=== PATIENT | female | born 1970 | race Caucasian/White ===

== ENCOUNTER 2018-04-01 14:06 | Emergency (ER) | payer OTHER ==
[2018-04-01] MEDS: predniSONE 10 MG TABLET PO (14:59)
[2018-04-01] MEDS: IPRATRPIUM/ALBUTEROL 0.5/2.5MG 3 ML NEBU. NEB (15:00)
== END 2018-04-01 15:40 | disposition home or self-care (01) ==
LOC: ER 14:06
DX: Z88.8 Allergy status to other drugs, medicaments and biological substances (principal); F17.210 Nicotine dependence, cigarettes, uncomplicated; J45.901 Unspecified asthma with (acute) exacerbation; Z98.51 Tubal ligation status; Z88.6 Allergy status to analgesic agent
CPT/HCPCS: 94640; 99283-25; J7512; J7620

== ENCOUNTER 2022-02-23 17:30 | Inpatient (IN) | payer SELFPAY ==
[~2022-02-23] VITALS: Ht 157.5 cm; Wt 198.0 kg
[~2022-02-23 17:30] MED LIST: AZIT250T6 PO; IV NORMAL SALINE 1000ML BAG 1,000 ML IV SCH; PRED20TA PO; fentaNYL PF VIAL 100 MCG/2 ML VIAL IV ONE
[2022-02-23] MEDS ORDERED: fentaNYL PF VIAL 100 MCG/2 ML VIAL ONE ×2 (17:45→19:33)
[2022-02-23] MEDS ORDERED: fentaNYL PF VIAL 100 MCG/2 ML VIAL IV ONE (19:06)
[2022-02-23] MEDS ORDERED: ACETAMINOPHEN 500 MG TABLET PO ONE (19:12)
[2022-02-23] MEDS ORDERED: PIPERACILLIN/TAZOBACTAM 3.375 GM in IV NORMAL SALINE 50ML 50 ML IV ONE (21:12)
[2022-02-24] VITALS (7 sets, daily range): BP systolic 117–157; BP diastolic 56–80
[2022-02-24] MEDS ORDERED: PROCHLORPERAZINE 10 MG/2 ML VIAL. IV PRN ×2 (01:30→07:45)
[2022-02-24] MEDS ORDERED: oxyCODONE/APAP 5/325 1 TAB TABLET PO PRN (01:30)
[2022-02-24] MEDS ORDERED: CONTRAST GIVEN. MC PRN (02:30)
[2022-02-24] MEDS ORDERED: IOHEXOL 300 MG/ML 100ML VIAL. IV ONE (02:30)
[2022-02-24] MEDS: fentaNYL PF VIAL 100 MCG/2 ML VIAL IVP PRN ×2 (02:52→09:03)
[2022-02-24] MEDS: IV NORMAL SALINE 1000ML BAG 1,000 ML IV SCH ×2 (02:59→11:30)
[2022-02-24] MEDS ORDERED: PIPERACILLIN/TAZOBACTAM 3.375 GM in IV NORMAL SALINE 50ML 50 ML IV SCH (05:00)
--- NOTE | 2022-02-24 07:05 | NUR ---
GI Consult called in for Dr. Ethan Landon. Message left with answering service staff
--- NOTE | 2022-02-24 07:44 | PDOC1 ---
History and Physical Date of Service: DOS: DATE: 02/24/22 TIME: 07:40 Chief Complaint: Chief Complain: Abdominal pain History of Present Illness: HPI: 51-year-old female with past medical history of diabetes mellitus, hypertension, hypothyroidism, gastroparesis who comes into the ED with complaints of left- sided abdominal pain. Her last bowel movement was yesterday and it was smoothly like in nature. No acute bleeding or bright red blood or dark tarry stools. Preliminary read of her CT scan showed sigmoid diverticulitis. Patient has had minor abdominal pains in the past but has never been diagnosed with diverticulosis. She had a colonoscopy in her early 20s and there was a polyp that was removed but it was noncancerous. She has not had any colonoscopies after that. She also has a unobscured history of gastroparesis for which she states that it might have been related to her hernia repair with mesh in the past. She had multiple C-sections that that eventually caused her to have a ventral hernia and she had that repaired. She also has a history of cholecystectomy. She is unsure what diagnosis they gave her but she also has a history of peptic ulcer disease as well 2. Currently denies any nausea vomiting, fevers, shortness of breath, chest pain, hematuria or bloody stools. Past Medical/Surgical History: PMH/PSH: History of diabetes mellitus type 2, hypertension, morbid obesity, questionable gastroparesis Past surgical history of cholecystectomy, C-sections, multiple, ventral hernia repair with mesh Allergies: Allergies: Coded Allergies: morphine (Verified Adverse Reaction, Intermediate, ITCHY, 04/01/18) metoclopramide (Verified Adverse Reaction, Unknown, ANXIOUS, 04/01/18) Family History: Family History: Reviewed with no relative findings in the chart. Social History: Social History: Denies any alcohol, tobacco or drug abuse. Current Medications: Current Medications Current Medications Sodium Chloride 1,000 ml @ 1,000 mls/hr Q1H IV ; Start 02/23/22 at 17:14; Stop 02/24/22 at 01:26; Status DC Fentanyl Citrate (Fentanyl 2ml Vial) 50 mcg ONCE ONCE IV ; Start 02/23/22 at 17:14; Stop 02/24/22 at 01:26; Status DC Fentanyl Citrate (Fentanyl 2ml Vial) 50 mcg ONCE ONCE IV ; Start 02/23/22 at 19:06; Stop 02/24/22 at 01:26; Status DC Acetaminophen (Tylenol) 1,000 mg ONCE ONCE PO ; Start 02/23/22 at 19:12; Stop 02/24/22 at 01:27; Status DC Piperacillin Sod/ Tazobactam Sod 3.375 gm/Sodium Chloride 50 ml @ 100 mls/hr ONCE ONCE IV ; Start 02/23/22 at 21:12; Stop 02/24/22 at 01:27; Status DC Sodium Chloride 1,000 ml @ 100 mls/hr Q10H IV Last administered on 02/24/22at 02:59; Start 02/24/22 at 01:30 Piperacillin Sod/ Tazobactam Sod 3.375 gm/Sodium Chloride 50 ml @ 100 mls/hr Q6HRS IV Last administered on 02/24/22at 05:24; Start 02/24/22 at 05:00 Fentanyl Citrate (Fentanyl 2ml Vial) 50 mcg PRN Q2HR PRN IVP PAIN Last administered on 02/24/22at 02:52; Start 02/24/22 at 01:30 Oxycodone/ Acetaminophen (Percocet 5/325) 1 tab PRN Q6HRS PRN PO PAIN MILD TO MODERATE; Start 02/24/22 at 01:30 Oxycodone/ Acetaminophen (Percocet 5/325) 2 tab PRN Q6HRS PRN PO PAIN SEVERE; Start 02/24/22 at 01:30 Prochlorperazine Edisylate (Compazine) 10 mg PRN Q6HRS PRN IV NAUSEA/VOMITING; Start 02/24/22 at 01:30 Iohexol (Omnipaque 300 Mg/ml) 75 ml 1X ONCE IV Last administered on 02/24/22at 02:20; Start 02/24/22 at 02:30; Stop 02/24/22 at 02:31; Status DC Info (CONTRAST GIVEN -- Rx MONITORING) 1 each PRN DAILY PRN MC SEE COMMENTS; Start 02/24/22 at 02:30; Stop 02/26/22 at 02:29 Active Scripts Active Azithromycin Tablet (Azithromycin) 250 Mg Tablet 1 Pkg PO UD Prednisone 20 Mg Tablet 2 Tab PO BID 4 Days ROS: Review of Systems Review of System REVIEW OF SYSTEMS: GENERAL: Denies weakness SKIN: No bruising, hair changes or rashes. EYES: No blurred, double or loss of vision. NOSE AND THROAT: No history of nosebleeds, hoarseness or sore throat. HEART: No history of palpitations, chest pain or shortness of breath on exertion. LUNGS: Denies cough, hemoptysis, wheezing or shortness of breath. GASTROINTESTINAL: Denies changes in appetite, nausea, vomiting, diarrhea or constipation. GENITOURINARY: No history of frequency, urgency, hesitancy or nocturia. NEUROLOGIC: Denies history of numbness, tingling, or tremor. PSYCHIATRIC: No history of panic, anxiety or depression. ENDOCRINE: No history of heat or cold intolerance, polyuria or polydipsia. EXTREMITIES: Denies joint pain, pain on walking or stiffness. Physical Exam: Vital Signs: Vital Signs Date Time Temp Pulse Resp B/P (MAP) Pulse Ox O2 Delivery O2 Flow Rate FiO2 02/24/22 03:55 98.0 78 18 117/62 (80) 92 Room Air 98.0 Physcial Exam: GEN: No apparent distress. Alert and oriented HEENT: Normal cephalic, atraumatic, external auditory canals are patent EYES: Extraocular muscles are intact, pupil are equally round and reactive to light and accommodation MUSCULOSKELETAL: Well developed , well nourished, good range of motion ENDOCRINE: No thyromegaly was palpated LYMPHATICS: No cervical chain or axillary nodes were noted HEMATOPOIETIC: No bruising NECK: Supple, no JVD, no thyromegaly was noted LUNGS: Clear to auscultation in all lung mathew without rhonchi or wheezing HEART: RRR, S!, S2 present. Peripheral pulses intact, no obvious murmurs noted ABDOMEN: Soft, nontender. Positive bowel sounds, no organomegaly, normal bowel sounds EXTREMITIES: Without clubbing, cyanosis, or edema. Pedal pulses intact. Negative Homans sign NEUROLOGIC: Normal speech and tone. A&O x 3, moves all extremities, no obvious focal deficits PSYCHIATRIC: Normal affect, normal mood. Stable SKIN: No ulcerations or rashes, good skin turgor, no jaundice VASCULAR: Good capillary refill, neurovascular bundle appears to be intact Labs: Labs: Pending labs Images: Images Pending final CT read Assessment/Plan Assessment/Plan Acute abdominal pain due to diverticulitis Morbid obesity History of diabetes mellitus History of hypertension Admit to hospitalist service for further management Continue IV fluids Continue IV antibiotics Appreciate GI recommendationsswitch to p.o. antibiotics and advance diet as tolerated. SCD and ambulation for DVT prophylaxis Protonix GI prophylaxis ADA diet CODE STATUS full Discussed with RN and SW Disposition inpatient management as above DPOA: Undesignated Justifications for Admission Other Justification CHAI JACOBO MD Feb 24, 2022 07:44
[2022-02-24] MEDS ORDERED: diphenhydrAMINE HCL 25 MG CAPSULE PO PRN ×2 (07:45)
[2022-02-24] MEDS ORDERED: diphenhydrAMINE 50 MG/ML VIAL IVP PRN (07:45)
[2022-02-24] MEDS ORDERED: DOCUSATE SODIUM 100 MG CAPSULE. PO PRN (07:45)
[2022-02-24] MEDS ORDERED: ACETAMINOPHEN 325 MG TABLET. PO PRN (07:45)
[2022-02-24] MEDS ORDERED: DEXTROSE 50% 25 GM / 50ML DISP.SYRIN. IV PRN (07:45)
[2022-02-24] MEDS ORDERED: ONDANSETRON PF 4 MG/2 ML VIAL. IVP PRN (07:45)
[2022-02-24] MEDS ORDERED: ZOLPIDEM 5 MG TABLET. PO PRN (07:45)
[2022-02-24] MEDS ORDERED: LORazepam 0.5 MG TABLET PO PRN (07:45)
[2022-02-24] MEDS ORDERED: SENNOSIDES 8.6 MG TABLET PO PRN (07:45)
--- NOTE | 2022-02-24 08:45 | PDOC2 ---
CONSULT Date of Consult Date of Consult DATE: 02/24/22 TIME: 08:37 Reason for Consult Reason for Consult: Abdominal pain, diverticulitis, hemorrhoid History of Present Illness Reason for Visit: This is a 51-year-old female who presents with new onset left-sided abdominal pain. Initial CT revealed segmental diverticulitis. She recalls having minor abdominal pain symptoms in the past but never to this severity and was never diagnosed with diverticulitis before. She had a colonoscopy in her 20s and had a polyp removed but has not had a follow-up colonoscopy in the last 25 years or so. She has a history of external hemorrhoids that occasionally bother her and sometimes bleed. The last few days she has had some diarrhea which is unusual for her since she usually has mild chronic constipation. There is a chronic history of external hemorrhoids with some discomfort and occasional bleeding. She has had some irritation from that presently. She was examined in the emergency room where external hemorrhoids were noted and was f elt like there might be some prolapse even of tissue or mass. Fortunately CT scan did not confirm any mass lesion. she does have a history of diabetes and actually has been told she has diabetic gastroparesis but this has not bothered her recently. She is tolerating diet without nausea or vomiting. We do not have any of those records available today. Overnight she was given IV antibiotics and some pain medication but this morning is feeling much better and wonders about when she can go home. Past Medical History GI: Diverticulosis, Hemorrhoids, Other (Told she has a history of diabetic gastroparesis?) Endocrine: Diabetes Current Problem List Problem List Problems Medical Problems: (1) Diverticulitis Status: Acute Current Medications Current Medications Current Medications Sodium Chloride 1,000 ml @ 1,000 mls/hr Q1H IV ; Start 02/23/22 at 17:14; Stop 02/24/22 at 01:26; Status DC Fentanyl Citrate (Fentanyl 2ml Vial) 50 mcg ONCE ONCE IV ; Start 02/23/22 at 17:14; Stop 02/24/22 at 01:26; Status DC Fentanyl Citrate (Fentanyl 2ml Vial) 50 mcg ONCE ONCE IV ; Start 02/23/22 at 19:06; Stop 02/24/22 at 01:26; Status DC Acetaminophen (Tylenol) 1,000 mg ONCE ONCE PO ; Start 02/23/22 at 19:12; Stop 02/24/22 at 01:27; Status DC Piperacillin Sod/ Tazobactam Sod 3.375 gm/Sodium Chloride 50 ml @ 100 mls/hr ONCE ONCE IV ; Start 02/23/22 at 21:12; Stop 02/24/22 at 01:27; Status DC Sodium Chloride 1,000 ml @ 100 mls/hr Q10H IV Last administered on 02/24/22at 02:59; Start 02/24/22 at 01:30 Piperacillin Sod/ Tazobactam Sod 3.375 gm/Sodium Chloride 50 ml @ 100 mls/hr Q6HRS IV Last administered on 02/24/22at 05:24; Start 02/24/22 at 05:00 Fentanyl Citrate (Fentanyl 2ml Vial) 50 mcg PRN Q2HR PRN IVP PAIN Last administered on 02/24/22at 02:52; Start 02/24/22 at 01:30 Oxycodone/ Acetaminophen (Percocet 5/325) 1 tab PRN Q6HRS PRN PO PAIN MILD TO MODERATE; Start 02/24/22 at 01:30 Oxycodone/ Acetaminophen (Percocet 5/325) 2 tab PRN Q6HRS PRN PO PAIN SEVERE; Start 02/24/22 at 01:30 Prochlorperazine Edisylate (Compazine) 10 mg PRN Q6HRS PRN IV NAUSEA/VOMITING; Start 02/24/22 at 01:30 Iohexol (Omnipaque 300 Mg/ml) 75 ml 1X ONCE IV Last administered on 02/24/22at 02:20; Start 02/24/22 at 02:30; Stop 02/24/22 at 02:31; Status DC Info (CONTRAST GIVEN -- Rx MONITORING) 1 each PRN DAILY PRN MC SEE COMMENTS; Start 02/24/22 at 02:30; Stop 02/26/22 at 02:29 Sennosides (Senna) 17.2 mg PRN BID PRN PO CONSTIPATION; Start 02/24/22 at 07:45 Docusate Sodium (Colace) 100 mg PRN DAILY PRN PO HARD STOOLS; Start 02/24/22 at 07:45 Ondansetron HCl (Zofran) 4 mg PRN Q6HRS PRN IVP NAUSEA/VOMITING, 1st CHOICE; Start 02/24/22 at 07:45 Dextrose (Dextrose 50%-Water Syringe) 12.5 gm PRN Q15MIN PRN IV SEE COMMENTS; Start 02/24/22 at 07:45 Acetaminophen (Tylenol) 650 mg PRN Q4HRS PRN PO TEMP OVER 100.4F OR MILD PAIN; Start 02/24/22 at 07:45 Lorazepam (Ativan) 0.5 mg PRN Q6HRS PRN PO ANXIETY / AGITATION; Start 02/24/22 at 07:45 Lorazepam (Ativan Inj) 0.25 mg PRN Q4HRS PRN IV ANXIETY / AGITATION; Start 02/24/22 at 07:45 Prochlorperazine Edisylate (Compazine) 10 mg PRN Q6HRS PRN IV NAUSEA/VOMITING, 2nd CHOICE; Start 02/24/22 at 07:45 Diphenhydramine HCl (Benadryl) 25 mg PRN Q6HRS PRN IVP ITCHING; Start 02/24/22 at 07:45 Diphenhydramine HCl (Benadryl) 25 mg PRN Q6HRS PRN PO ITCHING; Start 02/24/22 at 07:45 Diphenhydramine HCl (Benadryl) 25 mg PRN QHS PRN PO INSOMNIA, 1st CHOICE; Start 02/24/22 at 07:45 Zolpidem Tartrate (Ambien) 2.5 mg PRN QHS PRN PO INSOMNIA, 2nd CHOICE; Start 02/24/22 at 07:45 Active Scripts Active Azithromycin Tablet (Azithromycin) 250 Mg Tablet 1 Pkg PO UD Prednisone 20 Mg Tablet 2 Tab PO BID 4 Days Allergies Allergies: Coded Allergies: morphine (Verified Adverse Reaction, Intermediate, ITCHY, 04/01/18) metoclopramide (Verified Adverse Reaction, Unknown, ANXIOUS, 04/01/18) Physical Exam General: Alert, Oriented X3, Cooperative HEENT: Atraumatic, PERRLA Lungs: Clear to auscultation Heart: Regular rate, Normal S1 Abdomen: Normal bowel sounds, Soft, No tenderness, No hepatosplenomegaly, Other (Obese, but no point tenderness in the left lower quadrant) Extremities: No clubbing Neuro: Normal speech Psych/Mental Status: Mental status NL Vitals VITALS Vital Signs Date Time Temp Pulse Resp B/P (MAP) Pulse Ox O2 Delivery O2 Flow Rate FiO2 02/24/22 03:55 98.0 78 18 117/62 (80) 92 Room Air 98.0 Labs Labs WBC is 9.5, hemoglobin 13.[address] scan of the abdomen and pelvis Prior cholecystectomy Inflammatory changes in the sigmoid colon associated with diverticulitis. No mass or abnormality in the rectum was noted. Assessment/Plan Assessment/Plan Acute diverticulitis. This is her first episode. She has had prior symptoms of abdominal discomfort but not to this severity. She has not had a colonoscopy in many years. Fortunately clinically she is dramatically improved and has a normal white count. She is anxious to go home. Hemorrhoids versus rectal mass. It is reassuring that the CT scan was unr evealing but evaluation of this area electively would be appropriate. If the hemorrhoids are the problem then better control of her bowel pattern with fiber and MiraLAX would be appropriate. Further evaluation at the time of colonoscopy to determine if any other lesions are present would be appropriate but will need to wait until her diverticulitis is improved Plan: Switch to oral antibiotics and if tolerated early discharge is reasonable. Add fiber to her diet and MiraLAX as needed to control her bowel pattern in the future although presently she is not having constipation Colonoscopy is recommended in the next 4-6 weeks to evaluate as a screening study but also to rule out any mass lesions in the rectum. OSMAR FREGOSO MD Feb 24, 2022 08:45
[2022-02-24] MEDS: metroNIDAZOLE 500 MG TABLET PO SCH ×2 (09:01→20:30)
[2022-02-24] MEDS: AMOXICILLIN/K CLAV 500/125MG TABLET. PO SCH ×2 (09:01→20:30)
[2022-02-24] MEDS: oxyCODONE/APAP 5/325 1 TAB TABLET PO PRN ×3 (09:02→18:33)
[2022-02-24 10:24] LABS: BACTERIA,URINE 0 /HPF (0-FEW); WBC,URINE 0 /HPF (0-4)
[2022-02-24 10:26] LABS: DIRECT BILIRUBIN 0.1 mg/dL (0.0-0.2)
[2022-02-24 10:27] LABS: BASO # 0.1 x10^3/uL (0.0-0.2); BASO % 1 % (0-3); EOS # 0.1 x10^3/uL (0.0-0.7); EOS % 1 % (0-3); HEMATOCRIT 40.9 % (36.0-47.0); HEMOGLOBIN 13.9 g/dL (12.0-15.5); LYMPH # 1.8 x10^3/uL (1.0-4.8); LYMPH % 19 % (24-48); MEAN CORPUSCULAR HEMOGLOBIN 30 pg (25-35); MEAN CORPUSCULAR HGB CONC 34 g/dL (31-37); MEAN CORPUSCULAR VOLUME 86 fL (79-100); MONO # 0.5 x10^3/uL (0.0-1.1); MONO % 5 % (0-9); NEUT # 7.1 x10^3/uL (1.8-7.7); NEUT % 75 % (31-73); PLATELET COUNT 323 x10^3/uL (140-400); RED BLOOD COUNT 4.73 x10^6/uL (3.50-5.40); RED CELL DISTRIBUTION WIDTH 14.4 % (11.5-14.5); WHITE BLOOD COUNT 9.5 x10^3/uL (4.0-11.0)
[2022-02-24 11:10] LABS: ALBUMIN 3.2 g/dL (3.4-5.0); ALBUMIN/GLOBULIN RATIO 0.8 (1.0-1.7); CALCIUM 9.5 mg/dL (8.5-10.1); CREATININE 1.1 mg/dL (0.6-1.0); GFR 52.6; POTASSIUM 4.4 mmol/L (3.5-5.1); TOTAL BILIRUBIN 0.4 mg/dL (0.2-1.0); TOTAL PROTEIN 7.3 g/dL (6.4-8.2)
--- NOTE | 2022-02-24 18:33 | NUR ---
patient having increased pain after GI soft dinner. [place] the need to stay over night. Dr. Mckeon notified. Will try full liquid diet beginning in AM and advance as tolerated.
[2022-02-25] MEDS: IV NORMAL SALINE 1000ML BAG 1,000 ML IV SCH ×4 (00:07→19:28)
[2022-02-25] MEDS: oxyCODONE/APAP 5/325 1 TAB TABLET PO PRN ×4 (00:07→23:14)
[2022-02-25 03:38] VITALS: BP 140/76
[2022-02-25 06:56] VITALS: BP 127/85
[2022-02-25 07:56] LABS: BASO % 1 % (0-3); EOS # 0.1 x10^3/uL (0.0-0.7); EOS % 1 % (0-3); HEMATOCRIT 43.8 % (36.0-47.0); HEMOGLOBIN 14.7 g/dL (12.0-15.5); LYMPH # 1.1 x10^3/uL (1.0-4.8); LYMPH % 14 % (24-48); MEAN CORPUSCULAR HEMOGLOBIN 29 pg (25-35); MEAN CORPUSCULAR HGB CONC 34 g/dL (31-37); MEAN CORPUSCULAR VOLUME 88 fL (79-100); MONO # 0.5 x10^3/uL (0.0-1.1); MONO % 7 % (0-9); NEUT # 5.6 x10^3/uL (1.8-7.7); NEUT % 77 % (31-73); PLATELET COUNT 331 x10^3/uL (140-400); RED BLOOD COUNT 4.98 x10^6/uL (3.50-5.40); RED CELL DISTRIBUTION WIDTH 14.5 % (11.5-14.5); WHITE BLOOD COUNT 7.3 x10^3/uL (4.0-11.0)
[2022-02-25] MEDS: AMOXICILLIN/K CLAV 500/125MG TABLET. PO SCH ×2 (07:56→20:25)
[2022-02-25] MEDS: metroNIDAZOLE 500 MG TABLET PO SCH ×2 (07:56→20:25)
[2022-02-25 08:19] LABS: CALCIUM 9.1 mg/dL (8.5-10.1); CREATININE 1.1 mg/dL (0.6-1.0); GFR 52.6; MAGNESIUM 2.2 mg/dL (1.8-2.4); PHOSPHORUS 3.4 mg/dL (2.6-4.7); POTASSIUM 4.4 mmol/L (3.5-5.1)
[2022-02-25 11:00] VITALS: BP 119/84
--- NOTE | 2022-02-25 12:56 | PDOC ---
GI PROGRESS NOTES Date of Service: Date/Time DATE: 02/25/22 TIME: 12:52 Subjective Subjective Improved. Some soreness in the left lower quadrant but overall better. Last bowel movement 2 days ago. Normally regular. Objective Vitals Vital Signs Date Time Temp Pulse Resp B/P (MAP) Pulse Ox O2 Delivery O2 Flow Rate FiO2 02/25/22 11:00 98.1 74 16 119/84 (96) 97 Room Air 98.1 02/25/22 08:26 Room Air 02/25/22 08:00 Room Air 02/25/22 07:56 Room Air 02/25/22 06:56 97.9 74 20 127/85 (99) 93 Room Air 97.9 02/25/22 03:38 97.5 77 19 140/76 (97) 97 Room Air 97.5 02/25/22 00:37 20 Room Air 02/25/22 00:07 20 Room Air 02/24/22 22:48 97.6 78 19 120/63 (82) 100 Room Air 97.6 02/24/22 20:00 Room Air 02/24/22 19:03 20 Room Air 02/24/22 19:00 98.3 80 19 154/56 (88) 94 Room Air 98.3 02/24/22 18:33 16 97 Room Air 02/24/22 15:05 16 97 Room Air 02/24/22 15:00 98.4 82 16 131/68 (89) 97 Room Air 98.4 02/24/22 14:21 16 97 Room Air Labs Labs Laboratory Tests Test 02/25/22 07:00 White Blood Count 7.3 x10^3/uL (4.0-11.0) Red Blood Count 4.98 x10^6/uL (3.50-5.40) Hemoglobin 14.7 g/dL (12.0-15.5) Hematocrit 43.8 % (36.0-47.0) Mean Corpuscular Volume 88 fL (79-100) Mean Corpuscular Hemoglobin 29 pg (25-35) Mean Corpuscular Hemoglobin Concent 34 g/dL (31-37) Red Cell Distribution Width 14.5 % (11.5-14.5) Platelet Count 331 x10^3/uL (140-400) Neutrophils (%) (Auto) 77 % (31-73) Lymphocytes (%) (Auto) 14 % (24-48) Monocytes (%) (Auto) 7 % (0-9) Eosinophils (%) (Auto) 1 % (0-3) Basophils (%) (Auto) 1 % (0-3) Neutrophils # (Auto) 5.6 x10^3/uL (1.8-7.7) Lymphocytes # (Auto) 1.1 x10^3/uL (1.0-4.8) Monocytes # (Auto) 0.5 x10^3/uL (0.0-1.1) Eosinophils # (Auto) 0.1 x10^3/uL (0.0-0.7) Basophils # (Auto) 0.0 x10^3/uL (0.0-0.2) Sodium Level 137 mmol/L (136-145) Potassium Level 4.4 mmol/L (3.5-5.1) Chloride Level 101 mmol/L (98-107) Carbon Dioxide Level 31 mmol/L (21-32) Anion Gap 5 (6-14) Blood Urea Nitrogen 12 mg/dL (7-20) Creatinine 1.1 mg/dL (0.6-1.0) Estimated GFR (Cockcroft-Gault) 52.6 Glucose Level 110 mg/dL (70-99) Calcium Level 9.1 mg/dL (8.5-10.1) Phosphorus Level 3.4 mg/dL (2.6-4.7) Magnesium Level 2.2 mg/dL (1.8-2.4) Physical Exam Physical Exam Awake and alert Chest clear Abdomen soft, minimal tenderness in the left lower quadrant without point tenderness or rebound, normal bowel sounds Assessment Assessment Diverticulitis. Clinically improving. On oral antibiotics and tolerating diet. Has not had a bowel movement yet but this is not unusual and active diverticulitis however a dose of MiraLAX daily until she has bowel movements would be reasonable but I would not necessarily keep her in the hospital for t hat result. Hemorrhoids -by her history she has difficulties with external hemorrhoids. This needs to be reevaluated since it causes her some discomfort and can be done at the time of her elective colonoscopy in the next 4 weeks. She should continue to avoid straining or constipation. Using some padding while sitting may also be of benefit. Plan Plan MiraLAX as needed Okay to discharge from a GI perspective Oral antibiotics for the next 7 to 10 days. Elective colonoscopy in 4 weeks. My office will arrange that. Justicifation of Admission Dx: Justifications for Admission: Justification of Admission Dx: Yes OSMAR FREGOSO MD February 25, 2022 12:56
[2022-02-25] MEDS ORDERED: POLYETHYLENE GLYCOL 3350 17 GM PACKET. PO ONE (13:00)
[2022-02-25 15:00] VITALS: BP 123/80
[2022-02-25] MEDS: CITALOPRAM 20 MG TABLET. PO SCH (18:03)
[2022-02-25] MEDS: fentaNYL PF VIAL 100 MCG/2 ML VIAL IVP PRN (18:07)
[2022-02-25 19:00] VITALS: BP 95/53
[2022-02-25] MEDS ORDERED: METF500T16 PO (20:13)
[2022-02-25] MEDS ORDERED: LOSA-73 PO (20:13)
[2022-02-25] MEDS ORDERED: LEVO25TA4 PO (20:13)
[2022-02-25 23:00] VITALS: BP 134/86
[2022-02-26 03:00] VITALS: BP 134/82
[2022-02-26 05:31] LABS: BASO # 0.1 x10^3/uL (0.0-0.2); BASO % 1 % (0-3); EOS # 0.1 x10^3/uL (0.0-0.7); EOS % 2 % (0-3); HEMATOCRIT 41.1 % (36.0-47.0); HEMOGLOBIN 13.9 g/dL (12.0-15.5); LYMPH # 1.5 x10^3/uL (1.0-4.8); LYMPH % 26 % (24-48); MEAN CORPUSCULAR HEMOGLOBIN 30 pg (25-35); MEAN CORPUSCULAR HGB CONC 34 g/dL (31-37); MEAN CORPUSCULAR VOLUME 87 fL (79-100); MONO # 0.4 x10^3/uL (0.0-1.1); MONO % 8 % (0-9); NEUT # 3.6 x10^3/uL (1.8-7.7); NEUT % 63 % (31-73); PLATELET COUNT 310 x10^3/uL (140-400); RED BLOOD COUNT 4.72 x10^6/uL (3.50-5.40); RED CELL DISTRIBUTION WIDTH 14.5 % (11.5-14.5); WHITE BLOOD COUNT 5.6 x10^3/uL (4.0-11.0)
[2022-02-26 06:04] LABS: CALCIUM 8.8 mg/dL (8.5-10.1); GFR 58.7; MAGNESIUM 2.3 mg/dL (1.8-2.4); POTASSIUM 3.8 mmol/L (3.5-5.1)
[2022-02-26] MEDS: IV NORMAL SALINE 1000ML BAG 1,000 ML IV SCH (06:31)
[2022-02-26 07:00] VITALS: BP 167/86
--- NOTE | 2022-02-26 07:17 | RAD ---
EXAMINATION: CT abdomen/pelvis IV contrast only . INDICATION: rectal mass, [id number] 75ml COMPARISON: None available the time of dictation. TECHNIQUE: CT images were acquired through the abdomen and pelvis. Sagittal and coronal reformatted s eries were provided. FINDINGS: Lung Bases: Visualized lung bases are clear. Heart size is normal. Abdomen: Exam is degraded secondary to patient's body habitus. Liver: Diffuse hepatic steatosis. No suspicious hepatic lesions. Gallbladder & Biliary System: Cholecystectomy changes. No significant biliary duct dilation. Spleen: Unremarkable Pancreas: Unremarkable Adrenal Glands: Unremarkable Kidneys: Unremarkable Bowel: Stomach is unremarkable. No evidence of bowel obstruction. There is mild inflammatory wall thi ckening of the sigmoid colon with associated diverticulitis. No evidence of perforation or fluid suzie ection. Appendix is normal. Evaluation of the rectum/anus is suboptimal given the amount of artifact. Lymph Nodes: No pathologic adenopathy. Vasculature: Normal in course and caliber with mild aortobiiliac atherosclerotic disease. Other: No evidence of free air or fluid within the abdomen. Pelvis: Bladder: Unremarkable. Reproductive Organs: Unremarkable uterus. No suspicious adnexal masses. Lymph Nodes: Unremarkable Other: No significant free pelvic fluid. Body Wall: Unremarkable Bones: No acute fracture or suspicious osseous lesions. IMPRESSION: 1. Findings of acute uncomplicated sigmoid diverticulitis. Within the limits of this degraded exam th ere is no evidence of a distal rectal/anal mass. Recommend follow-up with GI for additional evaluati on with colonoscopy upon resolution of sigmoid inflammation. 2. Hepatic steatosis. Electronically signed by: Kwabena Velez DO (02/23/2022 8:51 PM) [facility]
[2022-02-26] MEDS: AMOXICILLIN/K CLAV 500/125MG TABLET. PO SCH (08:30)
[2022-02-26] MEDS: CITALOPRAM 20 MG TABLET. PO SCH (08:31)
[2022-02-26] MEDS: metroNIDAZOLE 500 MG TABLET PO SCH (08:31)
[2022-02-26] MEDS: oxyCODONE/APAP 5/325 1 TAB TABLET PO PRN (08:37)
--- NOTE | 2022-02-26 09:40 | PDOC ---
Date of Service: DATE: 02/26/22 TIME: 09:36 Subjective: Subjective: Pain across lower abdomen is still there but slowly improving. Has stooled. Eating regular food. Mentions she could continue recovery at home, needs note for work. Objective: Vital Signs: Vital Signs Date Time Temp Pulse Resp B/P (MAP) Pulse Ox O2 Delivery O2 Flow Rate FiO2 02/26/22 08:37 Room Air 02/26/22 07:00 98.1 65 18 167/86 (113) 93 98.1 Labs: Laboratory Tests Test 02/26/22 05:00 White Blood Count 5.6 x10^3/uL Red Blood Count 4.72 x10^6/uL Hemoglobin 13.9 g/dL Hematocrit 41.1 % Mean Corpuscular Volume 87 fL Mean Corpuscular Hemoglobin 30 pg Mean Corpuscular Hemoglobin Concent 34 g/dL Red Cell Distribution Width 14.5 % Platelet Count 310 x10^3/uL Neutrophils (%) (Auto) 63 % Lymphocytes (%) (Auto) 26 % Monocytes (%) (Auto) 8 % Eosinophils (%) (Auto) 2 % Basophils (%) (Auto) 1 % Neutrophils # (Auto) 3.6 x10^3/uL Lymphocytes # (Auto) 1.5 x10^3/uL Monocytes # (Auto) 0.4 x10^3/uL Eosinophils # (Auto) 0.1 x10^3/uL Basophils # (Auto) 0.1 x10^3/uL Sodium Level 138 mmol/L Potassium Level 3.8 mmol/L Chloride Level 103 mmol/L Carbon Dioxide Level 26 mmol/L Anion Gap 9 Blood Urea Nitrogen 11 mg/dL Creatinine 1.0 mg/dL Estimated GFR (Cockcroft-Gault) 58.7 Glucose Level 112 mg/dL Calcium Level 8.8 mg/dL Magnesium Level 2.3 mg/dL BLOOD CULTURE Preliminary NO GROWTH AFTER 1 DAY Imaging: CT A/P IMPRESSION: 1. Findings of acute uncomplicated sigmoid diverticulitis. Within the limits of this degraded exam there is no evidence of a distal rectal/anal mass. Recommend follow-up with GI for additional evaluation with colonoscopy upon resolution of sigmoid inflammation. 2. Hepatic steatosis. PE: GEN: NAD LUNGS: CTAB HEART: RRR ABD: obese, soft, non-tender NEURO/PSYCH: A & O 3 A/P: Diverticulitis - first episode -- Dc per primary on PO atbx - d/w nurse. We'll call to arrange colonoscopy in 4-6 weeks. Justicifation of Admission Dx: Justifications for Admission: Justification of Admission Dx: Yes RENAE LUNA February 26, 2022 09:40
[2022-02-26 11:00] VITALS: BP 148/85
[2022-02-26] MEDS ORDERED: METR-34 PO (13:18)
[2022-02-26] MEDS ORDERED: CITA20TA9 PO (13:18)
[2022-02-26] MEDS ORDERED: AMOX1TAB10 PO (13:18)
[2022-02-26 15:00] VITALS: BP 141/86
--- NOTE | 2022-02-26 15:20 | PDOC3 ---
[facility]-Discharge Summary Date of Admission: Date of Admission: Feb 24, 2022 Date of Discharge: Date of Discharge: February 26, 2022 Admission Diagnosis: Problems: (1) Diverticulitis Consults: Consults: GI Hospital Course: Hospital Course: HPI: 51-year-old female with past medical history of diabetes mellitus, hypertension, hypothyroidism, gastroparesis who comes into the ED with complaints of left- sided abdominal pain. Her last bowel movement was yesterday and it was smoothly like in nature. No acute bleeding or bright red blood or dark tarry stools. Preliminary read of her CT scan showed sigmoid diverticulitis. Patient has had minor abdominal pains in the past but has never been diagnosed with diverticulosis. She had a colonoscopy in her early 20s and there was a polyp that was removed but it was noncancerous. She has not had any colonoscopies after that. She also has a unobscured history of gastroparesis for which she states that it might have been related to her hernia repair with mesh in the past. She had multiple C-sections that that eventually caused her to have a ventral hernia and she had that repaired. She also has a history of cholecystectomy. She is unsure what diagnosis they gave her but she also has a history of peptic ulcer disease as well 2. Currently denies any nausea vomiting, fevers, shortness of breath, chest pain, hematuria or bloody stools. Patient seen by gastroenterology. Confirmed diverticulitis diagnosis. Treating with antibiotics which patient had great improvement with over the weekend. Tolerating oral intake. GI planning outpatient colonoscopy. Okay to discharge home today. Greater than 30 minutes spent on this discharge. Disposition: Disposition/Orders: D/C to Home Activity: Activity: Resume previous activity Diet: Diet: Regular Medications: Home Meds Active Scripts Citalopram Hydrobromide (CELEXA) 20 Mg Tablet, 40 MG PO DAILY for anxiety for 30 Days, #60 TAB Prov:SARAH HOFF MD 02/26/22 Metronidazole (METRONIDAZOLE) 500 Mg Tablet, 500 MG PO Q12HR for diverticulitis for 10 Days, #20 TAB Prov:SARAH HOFF MD 02/26/22 Amoxicillin/Potassium Clav (AMOX TR-K CLV 500-125 MG TAB) 1 Each Tablet, 1 TAB PO BID for diverticulitis for 10 Days, #20 TAB Prov:SARAH HOFF MD 02/26/22 Reported Medications Metformin Hcl (METFORMIN HCL) 500 Mg Tablet, 500 MG PO DAILYWBKFT for ANTI- DIABETIC, TAB 0 Refills 02/25/22 Losartan Potassium (LOSARTAN POTASSIUM) 50 Mg Tablet, 50 MG PO DAILY for HYPERTENSION, TAB 02/25/22 Levothyroxine Sodium (LEVOTHYROXINE SODIUM) 25 Mcg Tablet, 25 MCG PO DAILYAC for THYROID SUPPLEMENT 02/25/22 Scheduled Amoxicillin/Potassium Clav (Amox Tr-K Clv 500-125 Mg Tab), 1 TAB PO BID Citalopram Hydrobromide (Celexa), 40 MG PO DAILY Levothyroxine Sodium (Levothyroxine Sodium), 25 MCG PO DAILYAC, (Reported) Losartan Potassium (Losartan Potassium), 50 MG PO DAILY, (Reported) Metformin Hcl (Metformin Hcl), 500 MG PO DAILYWBKFT, (Reported) Metronidazole (Metronidazole), 500 MG PO Q12HR Justicifation of Admission Dx: Justifications for Admission: Justification of Admission Dx: Yes SARAH HOFF MD February 26, 2022 15:20
--- NOTE | 2022-02-26 15:45 | NUR ---
Discharge instruction given. Answered questions and concerns. Verbalized understanding. Pt discharged home accompanied by daughter. Escorted out by w/c.
[2022-02-26] MEDS ORDERED: LACTOBACILLUS RHAMNOSUS GG 1 CAPSULE. PO SCH (21:00)
== END 2022-02-26 15:48 | disposition home or self-care (01) | DRG 392 ==
LOC: ER 17:30 → 4 NORTH 21:39
PROVIDERS: ADMIT Family Medicine; ATTEND Family Medicine
DX: K57.32 Diverticulitis of large intestine without perforation or abscess without bleeding (principal); Z68.45 Body mass index [BMI] 70 or greater, adult; E03.9 Hypothyroidism, unspecified; E66.01 Morbid (severe) obesity due to excess calories; I10 Essential (primary) hypertension; K64.4 Residual hemorrhoidal skin tags; K76.0 Fatty (change of) liver, not elsewhere classified; Z87.11 Personal history of peptic ulcer disease; Z90.49 Acquired absence of other specified parts of digestive tract; Z88.8 Allergy status to other drugs, medicaments and biological substances; E11.9 Type 2 diabetes mellitus without complications
CPT/HCPCS: 36415; 74177; 80048; 80053; 81001; 82150; 82248; 83605; 83690; 83735; 84100; 85025; 87040; 99406; J2543; J3010; J7030; Q9967; G0378